=== PATIENT | female | born 1960 | race African-American/Black ===

== ENCOUNTER 2025-05-26 11:30 | Observation (INO) | payer OTHER ==
[2025-05-26 11:38] VITALS: RESP 18; BMI 27.3
[2025-05-26] MEDS ORDERED: DIPHTH,PERTUSS(ACELL),TET 0.5 ML DISP.SYRIN IM ONE (12:24)
[2025-05-26] MEDS ORDERED: ACETAMINOPHEN 325 MG TABLET (FP) ONE (12:24)
[2025-05-26] MEDS: ACETAMINOPHEN 500 MG TABLET (FP) PO ONE (12:29)
[2025-05-26] MEDS: DIPHTH,PERTUSS(ACELL),TET 0.5 ML DISP.SYRIN IM ONE (12:30)
[2025-05-26 13:13] LABS: ABSOLUTE IMMATURE GRANULOCYTES 0.02 x10^3/uL (0.0-0.031); BASOPHILS # 0.06 x10^3/uL (0.01-0.08); EOSINOPHIL % 0.8 % (0.7-5.8); EOSINOPHILS # 0.07 x10^3/uL (0.04-0.36); MCHC 32.0 g/dl (32.2-35.5); MEAN CELL VOLUME 92.7 fl (79.4-94.8); MEAN PLT VOLUME 10.1 fl (9.4-12.3); MONOCYTE # 0.52 x10^3/uL (0.24-0.86); MONOCYTE % 6.1 % (4.7-12.5); RDW 14.5 % (12.4-16.4)
[2025-05-26 13:16] LABS: EPI CELLS 10 /uL (0-25.1); HYALINE CASTS 0 /uL (0-3.1); URINE APPEARANCE CLEAR; URINE BACTERIA 794 /uL (0-1359); URINE BILIRUBIN NEGATIVE (NEGATIVE); URINE COLOR YELLOW; URINE GLUCOSE (UA) NEGATIVE (NEGATIVE); URINE KETONE NEGATIVE (NEGATIVE); URINE LEUK ESTERASE NEGATIVE (NEGATIVE); URINE NITRITE NEGATIVE (NEGATIVE); URINE PROTEIN NEGATIVE (NEGATIVE); URINE RBC 14 /uL (0-23.9); URINE UROBILINOGEN 0.2 mg/dL (0.2-1.0); URINE WBC 9 /uL (0-25.8)
[2025-05-26 14:13] LABS: CO2 28.0 mmol/L (21-32); GLUCOSE,RANDOM 115.0 mg/dL (74-106)
[2025-05-26 14:16] LABS: SGOT/AST 21.0 U/L (15-37); SGPT/ALT 29.0 U/L (13-61)
[2025-05-26 14:17] LABS: CREATININE 0.9 mg/dL (0.55-1.3)
[2025-05-26 14:18] LABS: TOT PROT 7.8 g/dl (6.4-8.2)
[2025-05-26 14:19] LABS: ALK PHOS 119.0 U/L (45-117)
[2025-05-26 14:38] LABS: HIV INTERPRETATION NEGATIVE (NEGATIVE)
[2025-05-26 14:39] LABS: HCV DIAGNOSTIC IN-HOUSE W/RFLX NON-REACTIVE (NONREACTIVE)
[2025-05-26] MEDS: MELATONIN 5 MG TABLETS PO PRN (23:52)
[2025-05-27] MEDS: ACETAMINOPHEN 325 MG TABLET (FP) PO PRN (08:26)
[2025-05-27 12:09] VITALS: TEMP 98.1
[2025-05-27 17:35] VITALS: BP 111/75; PULSE 90
== END 2025-05-27 18:19 | disposition home or self-care (01) ==
LOC: JER 11:30 → JERBED 14:35 → J4W 22:13
PROVIDERS: ADMIT Internal Medicine; ATTEND Internal Medicine
DX: R55 Syncope and collapse (principal); S00.11XA Contusion of right eyelid and periocular area, initial encounter; S00.81XA Abrasion of other part of head, initial encounter; S89.92XA Unspecified injury of left lower leg, initial encounter; E04.1 Nontoxic single thyroid nodule; W18.39XA Other fall on same level, initial encounter; Y92.038 Other place in apartment as the place of occurrence of the external cause
CPT/HCPCS: 36415; 70450-TC; 70486-TC; 71045-TC-FY; 72125-TC; 73560-TC-LT-FY; 80053; 81003; 83036; 83735; 84439; 84443; 84484; 85025; 86803; 87086; 87389; 90715; 93005; 93010; 93306-TC; 97116-GP; 97161-GP; 99285-25; G0378